=== PATIENT | male | born 2000 ===

== ENCOUNTER → 2022-01-07 | Outpatient (CLI) | payer BC ==
[~2022-01-07] MED LIST: BUTA1CAP29 PO
[2022-01-07 12:26] LABS: BASO % 1 % (0-3); EOS # 0.1 x10^3/uL (0.0-0.7); EOS % 2 % (0-3); HEMOGLOBIN 12.3 g/dL (13.0-17.5); LYMPH % 27 % (24-48); MEAN CORPUSCULAR HEMOGLOBIN 31 pg (25-35); MEAN CORPUSCULAR HGB CONC 33 g/dL (31-37); MEAN CORPUSCULAR VOLUME 93 fL (79-100); MONO # 0.6 x10^3/uL (0.0-1.1); MONO % 8 % (0-9); NEUT # 4.5 x10^3/uL (1.8-7.7); NEUT % 62 % (31-73); PLATELET COUNT 251 x10^3/uL (140-400); RED CELL DISTRIBUTION WIDTH 13.4 % (11.5-14.5); WHITE BLOOD COUNT 7.2 x10^3/uL (4.0-11.0)
[2022-01-07 12:37] LABS: PROTHROMBIN TIME PATIENT 12.9 SEC (11.7-14.0)
[2022-01-07 12:38] LABS: CALCIUM 8.9 mg/dL (8.5-10.1); CREATININE 0.8 mg/dL (0.7-1.3); GFR 119.8; POTASSIUM 3.8 mmol/L (3.5-5.1)
[2022-01-07 12:42] LABS: ALBUMIN 4.1 g/dL (3.4-5.0); ALBUMIN/GLOBULIN RATIO 1.3 (1.0-1.7); TOTAL BILIRUBIN 0.3 mg/dL (0.2-1.0); TOTAL PROTEIN 7.3 g/dL (6.4-8.2)
== END ==
LOC: ONCLAB 12:05
PROVIDERS: ATTEND Internal Medicine Hematology & Oncology
DX: R58 Hemorrhage, not elsewhere classified (principal); R79.1 Abnormal coagulation profile
CPT/HCPCS: 36415; 80053; 85025; 85610; 85730